=== PATIENT | female | born 1990 | race Caucasian/White ===

== ENCOUNTER 2020-06-28 20:14 | Emergency (ER) | payer OTHER, SELFPAY ==
[2020-06-28 20:21] VITALS: BP 138/80; PULSE 113; RESP 18; TEMP 36.2; O2SAT 100
--- NOTE | 2020-06-28 20:30 | ED.DENTAL ---
HPI - Dental/Oral General Chief complaint: Dental/Oral Stated complaint: wisdom teeth pain Time Seen by Provider: 06/28/20 20:24 History of Present Illness HPI Narrative: Pain in all 4 wisdom teeth for the past several days. Now associated with pain in the right ear and anterior cervical lymphadenopathy. She has been taking ibuprofen for the pain with mild improvment. Related Data Allergies Allergy/AdvReac Type Severity Reaction Status Date / Time No Known Allergies Allergy Unverified 02/07/17 13:24 Review of Systems Review of Systems: All systems reviewed & are unremarkable except as noted in HPI and below Constitutional: Constitutional: Denies fever(s) ENT: Denies sore throat Cardiovascular: Cardiovascular: Denies chest pain Respiratory: Respiratory: Denies cough and Denies dyspnea PMF Past Medical History Medical History (Updated 06/28/20 @ 20:39 by Ankur Link MD) Healthy adult Social History Social History (Updated 06/28/20 @ 20:39 by Ankur Link MD) Smoking status: Current every day smoker Exam Const: General: healthy appearing, no acute distress and alert Orientation/consciousness: patient oriented x3 HENMT: Ears: TM's normal bilaterally Other: lower wisdom teeth partial covered by mucosa. No significant swelling. Minimal left tonsillar exudate Neck: Neck: lymphadenopathy (right anterior) Resp: Effort & Inspection: normal respiratory effort Auscultation: clear to auscultation bilaterally Cardio: Rate: regular rate Rhythm: regular rhythm Course Vital Signs Vital signs: Vital Signs Temperature 36.2 C L 06/28/20 20:21 Pulse Rate 113 H 06/28/20 20:21 Respiratory Rate 18 06/28/20 20:21 Blood Pressure 138/80 06/28/20 20:21 Pulse Oximetry 100 06/28/20 20:21 Temperature 36.2 C L 06/28/20 20:21 Pulse Rate 113 H 06/28/20 20:21 Respiratory Rate 18 06/28/20 20:21 Blood Pressure 138/80 06/28/20 20:21 Pulse Oximetry 100 06/28/20 20:21 MDM - Dental/Oral Differential Diagnosis Differential diagnosis: Likely dental caries, toothache and dental abscess Discharge Plan Discharge Clinical Impression: Dental infection Patient Disposition: Home, Self-Care Condition: Stable Instructions: Antibiotic Form, Dental Abscess (ED) Prescriptions: New amoxicillin-pot clavulanate [Augmentin] 875-125 mg tablet 1 tablet PO Q12H Qty: 20 RF: 0 Follow-up/Referrals: UNKNOWN,DOCTOR [Primary Care Provider] -
[2020-06-28] MEDS: AMOXICILLIN/CLAVULANATE K 875-125 MG TAB 1 TABLET PO (20:50)
== END 2020-06-28 21:00 | disposition home or self-care (01) ==
LOC: ANHED 20:48
PROVIDERS: Emergency Provider Emergency Medicine
DX: K04.7 Periapical abscess without sinus (principal); F17.200 Nicotine dependence, unspecified, uncomplicated
CPT/HCPCS: 99283; A9270

== ENCOUNTER 2021-01-15 18:30 | Emergency (ER) | payer OTHER, SELFPAY ==
[2021-01-15 18:39] VITALS: BP 124/66; PULSE 113; RESP 20; TEMP 36.7; O2SAT 100
--- NOTE | 2021-01-15 18:39 | ED.URI ---
HPI - URI/Sore Throat General Chief Complaint: Upper Respiratory Infection Stated Complaint: Preg,Cough,Congestion Time Seen by Provider: 01/15/21 18:40 Source: patient Mode of arrival: ambulatory Limitations: no limitations History of Present Illness HPI Narrative: Mónica Saleh is a 30 yo 27 week female with no PMH comes with broken molars on the left and the right as well as nasal congestion worsening since yesterday. She has a cough that kept her awake at night. She is currently down to 5 cigarettes a day also. Is requesting something to treat her teeth as well as her cough. This is her 4th - Contact her SHANK TURNER who told her that she needed to come to an urgent care for treatment Related Data Home Medications Medication Instructions Recorded Confirmed PNV 119-iron fum-folic acid 29 tablet PO DAILY 01/15/21 01/15/21 Allergies Allergy/AdvReac Type Severity Reaction Status Date / Time No Known Allergies Allergy Verified 01/15/21 18:36 Review of Systems Review of Systems: Narrative: CONSTITUTIONAL: Denies fever, chills, sweats. EYES: Denies visual changes, redness, discharge. ENT: Denies rhinorrhea, congestion, sore throat, otalgia. CARDIOVASCULAR: Denies chest pain, palpitations, edema. RESPIRATORY: Denies dyspnea, wheezing, has dry cough GASTROINTESTINAL: Denies abdominal pain, nausea, vomiting, diarrhea. GENITOURINARY: Denies dysuria, hematuria, abnormal discharge SKIN: Denies rash or itching. NEUROLOGIC: Denies numbness, or focal weakness. PSYCHIATRIC: Denies anxiety or depression. Fractured molars on the left and right upper that have become infected she suspects PMFSH Past Medical History Medical History (Updated 01/15/21 @ 19:27 by Bridgette Falcon CNP) Healthy adult Tobacco abuse Family History Family History Father Hypertension Social History Social History (Updated 01/15/21 @ 18:53 by Bridgette Falcon CNP) Smoking status: Current every day smoker Living arrangements: with family Gender identity (if verbalized by the patient): Female Comments At time of signature, I agree with nursing past medical, surgical, social and family history. There is no relevant family history pertinent to the presenting complaint. Exam Narrative: Exam Narrative: GENERAL: This is a well-nourished, well-developed patient, in moderate distress. HEAD: normocephalic, atraumatic. EYES: Sclera clear/white. Vision is grossly intact. EARS: External ears normal, auditory canals mild erythema and without drainage, TMs normal without perforation. Hearing grossly intact. NOSE: External nose normal without nasal discharge, nares with redness, has rhinorrhea. THROAT: Mucous membranes moist, posterior pharynx mild erythema NECK: Neck supple, non-tender CARDIOVASCULAR: Tachycardic rate and rhythm without murmurs, gallops, or rubs. RESPIRATORY: Coarse to auscultation. Breath sounds equal bilaterally. No wheezes, rales, or rhonchi. GASTROINTESTINAL: Abdomen soft, non-tender,enlarged per stage of SKIN: warm, intact with no suspicious lesions or rash, good texture and turgor. NEURO: awake, alert, and oriented to person, place and time. There were no obvious focal neurologic abnormalities. Steady gait EXTREMITIES: Normal range of motion. BACK: Nontender without deformity Course Course Emergency Course: Patient here with cold symptoms and pain from broken teeth appear to be somewhat infected Started on penicillin the 500 mg 3 times daily ID x10 days Flonase nasal spray Robitussin cough and chest- called pharmacy to ensure no alcohol in formulation as pt is in outpt treatment and cannot have any alcohol Vital Signs Vital signs: Vital Signs Temperature 98.1 F 01/15/21 18:39 Pulse Rate 113 H 01/15/21 18:39 Respiratory Rate 20 01/15/21 18:39 Blood Pressure 124/66 01/15/21 18:39 Pulse Oximetry 100 01/15/21 18:39 Temp
== END 2021-01-15 19:20 | disposition home or self-care (01) ==
PROVIDERS: Emergency Provider Nurse Practitioner
DX: O99.612 Diseases of the digestive system complicating pregnancy, second trimester (principal); Z3A.27 27 weeks gestation of pregnancy; K08.89 Other specified disorders of teeth and supporting structures; O99.512 Diseases of the respiratory system complicating pregnancy, second trimester; J06.9 Acute upper respiratory infection, unspecified; O99.332 Smoking (tobacco) complicating pregnancy, second trimester; F17.210 Nicotine dependence, cigarettes, uncomplicated
CPT/HCPCS: 99213; G0463

== ENCOUNTER 2021-03-30 04:55 | Inpatient (IN) | payer OTHER, SELFPAY ==
[2021-03-30] VITALS (98 sets, daily range): BP systolic 95–142; BP diastolic 32–97; PULSE 77–119; RESP 15–16; TEMP 35.9–36.9; O2SAT 95–100; BMI 34.2
--- NOTE | 2021-03-30 05:29 | LDADM ---
This patient, Mónica Saleh, was admitted to Labor/Delivery/Recovery 106 on 03/30/21 at 04:55. Plans for labor, pain management and were discussed with patient. Patient/family oriented to hospital policies and general routines including ID bracelet, bed and alarms, visiting hours, pain management, procedures, bathroom and other care routines, personal items, smoking policy, room service/diet and guest tray routines, infant security routines, and visiting hours. Patient/Family are encouraged to report perceived risks to care and to ask questions if they do not understand what they are told or what they should do. See OBIX for further documentation.
[2021-03-30 05:33] LABS: Basophils Absolute Auto 0.1 K/mm3 (0.0-0.1); Basophils Percent Auto 0.5 % (0.2-1.2); Eosinophils Absolute Auto 0.1 K/mm3 (0-0.3); Eosinophils Percent Auto 0.9 % (0-4.4); Hematocrit 36.3 % (37.0-47.0); Hemoglobin 11.9 g/dL (12.0-15.0); Immature Granulocyte Absolute 0.31 K/mm3 (0.00-0.031); Immature Granulocyte Percent A 2.1 % (0-0.5); Lymphocytes Absolute Auto 2.18 K/mm3 (0.9-3.2); Lymphocytes Percent Auto 14.4 % (18.3-44.2); Mean Corpuscular HGB Conc 32.8 g/dl (32-36); Mean Corpuscular Volume 97.6 fl (80-100); Mean Platelet Volume 10.5 fl (7.4-10.4); Monocytes Absolute Auto 1.2 K/mm3 (0.1-0.6); Neutrophils Absolute Auto 11.2 K/mm3 (1.3-6.7); Neutrophils Percent Auto 74.1 % (45.5-73.1); Platelet Count Result 268 k/mm3 (150-375); Red Blood Count 3.72 M/mm3 (4.2-5.4); Red Cell Distribution Width 13.1 % (11.5-14.5); White Blood Count 15.1 K/mm3 (4.5-10.0)
[2021-03-30] MEDS: OXYTOCIN 30 UNITS/NS 500 ML 30 UNITS/500 ML BAG IV CONT (05:45)
[2021-03-30] MEDS: LACTATED RINGERS 1,000 ML 125 ML IV CONT (05:45)
--- NOTE | 2021-03-30 07:32 | P.PNAN_ITS ---
Anes - Eval Pre Procedure Procedure: Labor epidural Date/Time: 03/30/21 07:32 Surgeon: james Preop Diagnosis: pain during labor Pre Op Diagnosis: Induction of Labor Patient Data Age: 30 Gender: F Height: 1.75 m Weight: 105 kg Last Vital Signs Temp 36.0 C L 03/30/21 05:42 Pulse 93 03/30/21 07:31 BP 126/72 03/30/21 07:31 Allergies Allergy/AdvReac Type Severity Reaction Status Date / Time No Known Allergies Allergy Verified 03/27/21 13:39 Home Medications Medication Instructions Recorded Confirmed Type PNV 119-iron fum-folic acid 29 tablet PO DAILY 01/15/21 03/30/21 History Laboratory Tests 03/30/21 03/30/21 03/30/21 05:24 05:24 05:24 WBC 15.1 K/mm3 H K/mm3 (4.5-10.0) RBC 3.72 M/mm3 L M/mm3 (4.2-5.4) Hgb 11.9 g/dL L g/dL (12.0-15.0) Hct 36.3 % L % (37.0-47.0) MCV 97.6 fl fl (80-100) MCH 32.0 pg pg (26-34) MCHC 32.8 g/dl g/dl (32-36) RDW 13.1 % % (11.5-14.5) Plt Count 268 k/mm3 k/mm3 (150-375) MPV 10.5 fl H fl (7.4-10.4) Immature Gran % (Auto) 2.1 % H % (0-0.5) Neut % (Auto) 74.1 % H % (45.5-73.1) Lymph % (Auto) 14.4 % L % (18.3-44.2) Patrick % (Auto) 8.0 % % (2.6-8.5) Eos % (Auto) 0.9 % % (0-4.4) Baso % (Auto) 0.5 % % (0.2-1.2) Lymph # (Auto) 2.18 K/mm3 K/mm3 (0.9-3.2) Patrick # (Auto) 1.2 K/mm3 H K/mm3 (0.1-0.6) Eos # (Auto) 0.1 K/mm3 K/mm3 (0-0.3) Baso # (Auto) 0.1 K/mm3 K/mm3 (0.0-0.1) Abs Immat Gran (auto) 0.31 K/mm3 H K/mm3 (0.00-0.031) Absolute Neuts (auto) 11.2 K/mm3 H K/mm3 (1.3-6.7) Absolute Nucleated RBC 0.0 K/mm3 K/mm3 (0.0-0.012) Nucleated RBC % 0.0 % % (0.0-0.2) RPR Pending Blood Type A Positive Antibody Screen Negative Patient hx anesthesia problems: none Family hx anesthesia problems: none PMFSH Past Medical History Medical History (Updated 01/16/21 @ 00:01 by Dara Zuniga) Healthy adult Tobacco abuse Family History Family History Father Hypertension Mother Liver cirrhosis Depression Other Parents Social History Social History (Updated 01/15/21 @ 18:53 by Bridgette Falcon CNP) Years smoked: 12 Smoking status: Current every day smoker Tobacco type: cigarettes Second hand tobacco smoke exposure: Yes Substance use: former Last use: LAST TIME IN JANUARY 2021 Gender identity (if verbalized by the patient): Female Spiritual care concerns: No Exam Day of Procedure 03/30/21 07:32
--- NOTE | 2021-03-30 08:01 | WPDHPUPDATE1 ---
History and Physical Update Update Date/Time: 03/30/21 08:01 This patient is a 30y/o at 39 wks. Presents for elective induction of labor. Reassuring status. AROM - clear. Pitocin started. History and Physical has been reviewed, including an updated exam of the patient. There are NO changes in the patient's condition. Risks, benefits, and alternatives have been discussed and questions answered. Patient agrees to proceed with procedure.
[2021-03-30 08:05] LABS: Rapid Plasma Reagin Non-Reactive (NonReactive)
[2021-03-30 08:09] LABS: Amphetamine Screen Urine Negative (Negative); Barbiturate Screen Urine Negative (Negative); Benzodiazepines Screen Urine Negative (Negative); Cannabinoid Screen Urine Negative (Negative); Cocaine Screen Urine Negative (Negative); Methadone Screen Urine Negative (Negative); Opiate Screen Urine Negative (Negative); Phencyclidine Screen Urine Negative (Negative)
[2021-03-30] MEDS: LACTATED RINGERS 1,000 ML 999 ML IV CONT (08:20)
--- NOTE | 2021-03-30 11:51 | PM.OBPRVD ---
OB - Delivery Note Procedure Delivery date: 03/30/21 Procedure: Intrapartal events: None Induction method: AROM and per pitocin protocol Delivery monitor: external FHT and internal uterine Route of delivery: Laceration Description: Perineal - 1st Degree Delivery repair: vicryl Specimen: No Quantitative Blood Loss (ml): 150 Anesthesia type: Epidural Disposition: floor Baby Date of : 03/30/21 Time of : 11:39 Weeks of gestation at delivery: 39 gender: Male Weight (pounds): 9 Weight (ounces): 9 presentation: vertex
[2021-03-30] MEDS: OXYTOCIN 30 UNITS/NS 500 ML 30 UNITS/500 ML BAG 125 UNITS IV CONT (12:13)
[2021-03-30] MEDS: IBUPROFEN 600 MG TABLET PO ×2 (13:36→19:27)
[2021-03-30] MEDS: BENZOCAINE 20% AER SPR (*SP) 56 GM CAN 1 SPRAY TOPICAL (13:37)
[2021-03-30] MEDS: WITCH HAZEL 40 PADS 1 PAD TOPICAL (13:37)
--- NOTE | 2021-03-30 14:59 | PC.NURSE ---
Patient transferred to post room #287 per wheelchair. Support person present. Oriented to unit, room, information board, rooming in, admission packet and security measures. Patient verbalizes understanding.
[2021-03-30] MEDS: ACETAMINOPHEN 325 MG TABLET 650 MG PO (17:16)
[2021-03-30] MEDS: ZOLPIDEM TARTRATE (*CRX) 5 MG TABLET PO (19:34)
[2021-03-31 03:10] VITALS: BP 129/79; PULSE 89; RESP 13; TEMP 36.7; O2SAT 98
[2021-03-31] MEDS: IBUPROFEN 600 MG TABLET PO ×3 (03:10→19:20)
--- NOTE | 2021-03-31 07:13 | WPDANLDPN2 ---
Anes-Prog Note L&D Date/Time: 03/31/21 07:13 Comfortable throughout: labor and delivery Neuraxial method: epidural Epidural/Spinal procedure site: clean & non-tender Neuro status: Neuro function grossly intact. Cardiovascular status: normal Respiratory status: normal Airway patency: baseline Mental status: baseline Post-Op hydration status: normal Vital Signs: Last Vital Signs Temp 36.7 C 03/31/21 03:10 Pulse 89 03/31/21 03:10 Resp 13 03/31/21 03:10 BP 129/79 03/31/21 03:10 Pulse Ox 98 03/31/21 03:10 Pain score (VAS): 09/07 I/O: Intake & Output 03/30/21 03/30/21 03/31/21 15:59 23:59 07:59 Intake Total 2500 Output Total 1150 Balance 1350 Post-procedural complaints: none Patient feedback: Patient satisfied with anesthetic care.
[2021-03-31 07:58] LABS: Hematocrit 34.3 % (37.0-47.0); Hemoglobin 11.1 g/dL (12.0-15.0)
--- NOTE | 2021-03-31 08:04 | PM.OBPNVD ---
OB - PN: Subj Subjective Date/time seen: 03/31/21 08:04 Patient comments: no complaints, pain well controlled, incisional pain, tolerating diet and flatus present OB - PN: Obj Data Labs CBC & Chem 7: 03/30/21 05:24 Labs: Laboratory Results - last 24 hr 03/30/21 03/30/21 05:24 07:20 Urine Opiates Screen Negative Urine Methadone Screen Negative Ur Barbiturates Screen Negative Ur Phencyclidine Scrn Negative Ur Amphetamine Screen Negative U Benzodiazepines Scrn Negative Urine Cocaine Screen Negative U Cannabinoids Screen Negative RPR Non-reactive OB - PN A/P Plan day: 1 Plan: routine care Comments: No problems, routine care, to d/c if baby is ready Time Spent With Patient Time: Total time spent is greater than 50% in coordination of care (as documented) at patient's floor/unit and/or counseling patient: Exam Const: General: comfortable, no acute distress and alert Resp: Effort & Inspection: normal respiratory effort Auscultation: no crackles, no rales and no rhonchi Cardio: Rate: regular rate Heart sounds: no click, no murmurs and no rubs GI: Inspection: non-distended GI Palp: No Tenderness to palpation present (GI) Auscultation: normal bowel sounds Other: Incision - CDI Extrem: General: normal to inspection, no pedal edema and no calf tenderness
[2021-03-31 08:40] VITALS: BP 125/72; PULSE 88; RESP 16; TEMP 36.6; O2SAT 98
[2021-03-31 09:00] VITALS: PULSE 88; RESP 16; O2SAT 98
[2021-03-31] MEDS: DOCUSATE SODIUM 100 MG CAPSULE PO (09:00)
--- NOTE | 2021-03-31 16:27 | PCCCNOTE ---
Received referral for limited care and marijuana during . Met with pt. and significant other, Cristian at bedside. Pt. confirms marijuana use early in and states stopped using. She denies any other substance use. She states limited care due to being depressed. She states no longer depressed. She reports having three other children that were adopted in 2017; she confirms [facility] involvement regarding situation. All above reported to DCFS; awaiting determination. Provided pt. with and counseling resources at time of my visit. Encouraged she contact any/all of interest. field crop farm worker present at hospital this afternoon to meet with pt. and informs RN that pt. is assigned upper caser, Vivian Baca through [place] and Vivian will be informing us of determination. Following.
[2021-03-31 19:20] VITALS: BP 122/69; PULSE 90; RESP 14; TEMP 36.1; O2SAT 97
[2021-04-01] MEDS: ZOLPIDEM TARTRATE (*CRX) 5 MG TABLET PO (00:04)
--- NOTE | 2021-04-01 05:27 | PM.OBPNVD ---
OB - PN: Subj Subjective Date/time seen: 04/01/21 05:27 Patient comments: no complaints baby status: doing well OB - PN: Obj Data Labs CBC & Chem 7: 03/31/21 03:34 Labs: Laboratory Results - last 24 hr 03/31/21 03:34 Hgb 11.1 L Hct 34.3 L OB - PN A/P Plan day: 2 Plan: routine care and discharge home Time Spent With Patient Time: Total time spent is greater than 50% in coordination of care (as documented) at patient's floor/unit and/or counseling patient: Review of Systems Review of Systems: All systems reviewed & are unremarkable except as noted in HPI and below Exam Const: General: cooperative and healthy appearing Limitations: no limitations Psych: Thought content: Yes Normal thought content present Insight: Good insight present (Psych) Judgement: Good judgement present (Psych)
--- NOTE | 2021-04-01 05:28 | PM.OBDSVD ---
DS: Admitting Diagnosis Admitting Diagnosis MIL OB - DS: Summary OB Procedures : None OB Procedures Intrapartum: Spontaneous Vag Delivery and Other OB Procedures: : None Time Spent with Patient Time attestation: Total time spent providing and/or coordinating discharge services: DS: Data Data Completed and Pending Labs on day of discharge: Labs from last 24 hours 03/31/21 03:34 Hgb 11.1 L Hct 34.3 L Discharge Plan Discharge Attending physician on discharge: Cristian Mayer Discharging Clinician: Yaneth Sheppard Patient Disposition: Home, Self-Care Activity: pelvic rest Diet: regular Patient Instructions: Antibiotic Form, How to Stop Smoking (DC), Secondhand Smoke Exposure in Children (GEN) Stand Alone Forms: General Discharge Information Follow-up/Referrals: Cristian Mayer MD [Physician] - 4 Weeks Discharge Medications: Continued PNV 119-iron fum-folic acid 29 mg iron- 1 mg tablet 29 tablet PO DAILY RF: 0 Date of admission: 03/30/21 04:55 Primary Care Provider: PHYSICIAN,SOCIAL AND HUMAN SERVICES ASSISTANT Admitting Provider: Cristian Mayer Attending physician on admission: Cristian Mayer Condition: Stable
[2021-04-01 07:45] VITALS: PULSE 92; RESP 18; O2SAT 99
[2021-04-01 07:50] VITALS: BP 135/74; PULSE 92; RESP 18; TEMP 36.4; O2SAT 99
--- NOTE | 2021-04-01 12:44 | PCCCNOTE ---
Addendum entered by JI Lee 04/03/21 14:19: Faxed meconium results to DCFS worker Vivian Baca. Also informed Vivian that pt. and baby did not come to their follow up appointments as scheduled. Original Note: Care Coordination Note: Received call from DCFS worker Vivian Baca ([phone]) who states pt. is cleared to return home with Baby Michele Saleh at discharge. Vivian has been to the home and pt. has all necessary supplies for baby at home. Vivian requests that once the meconium results are available that they be faxed to [phone]. Pt. to discharge today.
[2021-04-01] MEDS: WITCH HAZEL 40 PADS 1 PAD TOPICAL (14:17)
[2021-04-01] MEDS: BENZOCAINE 20% AER SPR (*SP) 56 GM CAN 1 SPRAY TOPICAL (14:17)
[2021-04-01] MEDS: IBUPROFEN 600 MG TABLET PO (14:17)
[2021-04-01] MEDS: TETANUS,DIPHTHERIA,AC PERTUSSIS ADULT (0.5 ML) BOOSTRIX IM (14:18)
== END 2021-04-01 14:50 | disposition home or self-care (01) | DRG 560 ==
LOC: ANHLDR 06:10 → ANHOB2 15:12
PROVIDERS: Advanced Practice Midwife; Admitting Provider Obstetrics & Gynecology; Visit Provider Obstetrics & Gynecology
DX: O70.0 First degree perineal laceration during delivery (principal); Z3A.39 39 weeks gestation of pregnancy; Z37.0 Single live birth
CPT/HCPCS: 36415; 80307; 85014; 85018; 85025; 86592; 86850; 86900; 86901; 90715; A9270; J2590; J2795; J7120